=== PATIENT | female | born 1970 | race African-American/Black ===

== ENCOUNTER 2018-07-04 11:11 | Emergency (ER) | payer MEDICAID ==
[~2018-07-04] VITALS: Ht 167.6 cm; Wt 70.0 kg
[~2018-07-04 11:11] MED LIST: ALBU18HF2 IH; AMLO10TA80 PO; BUDE6HFA IH; IBUP-2028 PO; INDO25CA18 PO; MONT10TA24 PO
[2018-07-04] MEDS ORDERED: IPRATROPIUM BROMIDE (0.02%) 0.5MG/2.5ML NEB HHN STA ×2 (12:49→13:07)
[2018-07-04] MEDS ORDERED: METHYLPREDNISOLONE SOD SUCC 125 MG/2 ML VIAL IV STA ×2 (12:49→13:07)
[2018-07-04] MEDS ORDERED: ALBUTEROL (0.083%) 2.5MG/3ML NEB HHN STA ×2 (12:49→13:07)
[2018-07-04] MEDS ORDERED: ALBUTEROL (0.5%) 2.5MG/0.5ML NEB HHN ONE (13:23)
[2018-07-04] MEDS ORDERED: IPRATROPIUM BROMIDE (0.02%) 0.5MG/2.5ML NEB ONE (13:23)
[2018-07-04 14:24] VITALS: BP 121/64
== END 2018-07-04 14:26 | disposition home or self-care (01) ==
LOC: ER 11:11
DX: J45.901 Unspecified asthma with (acute) exacerbation (principal); I10 Essential (primary) hypertension
CPT/HCPCS: 81025; 94640; 96374; 99284; J2930; J7611; Z7610

== ENCOUNTER 2019-10-28 09:55 | Emergency (ER) | payer MEDICAID ==
[~2019-10-28] VITALS: Ht 160 cm; Wt 69.0 kg
[~2019-10-28 09:55] MED LIST changes: +INDO-13 PO; -INDO25CA18 PO
[2019-10-28] MEDS ORDERED: KETOROLAC 60MG/2ML VIAL IM ONE (10:30)
[2019-10-28 11:33] VITALS: BP 162/98
== END 2019-10-28 11:35 | disposition home or self-care (01) ==
LOC: ER 09:55
DX: M10.9 Gout, unspecified (principal); M25.571 Pain in right ankle and joints of right foot; M25.562 Pain in left knee; M25.561 Pain in right knee; I10 Essential (primary) hypertension; J45.909 Unspecified asthma, uncomplicated; Z79.899 Other long term (current) drug therapy
CPT/HCPCS: 73610; 96372; 99283; J1885

== ENCOUNTER 2022-04-03 12:03 | Inpatient (IN) | payer MEDICAID ==
[~2022-04-03] VITALS: Ht 160 cm; Wt 80.7 kg
[~2022-04-03 12:03] MED LIST changes: +MONT-39 PO; -MONT10TA24 PO
[2022-04-03] MEDS ORDERED: MORPHINE SULFATE 4 MG/ML CPJ (NOT FOR IM USE) IV STA (12:47)
[2022-04-03] MEDS ORDERED: ONDANSETRON HCL 4MG/2ML INJ IV STA (12:47)
[2022-04-03 13:00] LABS: CHLORIDE 103 mEq/L (98-107)
[2022-04-03] MEDS ORDERED: ASPIRIN 81MG TABLET PO ONE (13:00)
[2022-04-03] MEDS ORDERED: NITROGLYCERIN OINT 1GM/INCH UDPKT TD ONE (13:00)
[2022-04-03] MEDS ORDERED: ALBUTEROL (0.083%) 2.5MG/3ML NEB HHN STA (13:31)
[2022-04-03] MEDS ORDERED: IPRATROPIUM BROMIDE (0.02%) 0.5MG/2.5ML NEB HHN STA (13:31)
[2022-04-03 13:57] LABS: BASOPHILS % 0.3 % (0.0-2.0); EOSINOPHILS % 0.1 % (0.0-5.0); HEMATOCRIT. 37.1 % (36.0-48.0); HEMOGLOBIN. 12.2 g/dL (12.0-16.0); MEAN CORPUSCULAR VOLUME 88.3 fL (81.0-99.0); MEAN PLATELET VOLUME 9.5 fl (7.4-10.4); MONOCYTES % 9.8 % (2.0-8.0); NEUTROPHILS % 67.8 % (40.0-76.0); PLATELET 235 x1000/uL (130-400); RED BLOOD CELL COUNT 4.21 mill/uL (4.2-5.4); RED CELL DISTRIBUTION WIDTH 14.3 % (11.6-14.6)
[2022-04-03] MEDS ORDERED: IPRATROPIUM/ALBUTEROL 0.5-3(2.5)MG/3ML NEB HHN PRN (19:15)
[2022-04-03 20:00] VITALS: BP 120/64
[2022-04-03] MEDS ORDERED: ASPIRIN 81MG TABLET PO SCH (20:00)
[2022-04-03] MEDS: ENOXAPARIN 40MG/0.4ML SYR SUBCUT SCH (22:34)
[2022-04-03] MEDS: METOPROLOL TARTRATE 50MG TABLET PO SCH (22:35)
[2022-04-03] MEDS: HYDROCODONE/ACETAMINOPHEN 5/325MG TABLET PO PRN (22:38)
[2022-04-04] VITALS (7 sets, daily range): BP systolic 110–151; BP diastolic 60–90
[2022-04-04] MEDS: HYDROCODONE/ACETAMINOPHEN 5/325MG TABLET PO PRN (07:28)
[2022-04-04] MEDS: ASPIRIN 81MG TABLET PO SCH (09:00)
[2022-04-04] MEDS: METOPROLOL TARTRATE 50MG TABLET PO SCH (09:01)
[2022-04-04] MEDS ORDERED: NALOXONE HCL 0.4MG/ML VIAL IV PRN (12:45)
[2022-04-04] MEDS: MONTELUKAST SODIUM 10MG TABLET PO SCH (18:02)
[2022-04-04] MEDS: AMLODIPINE 10MG TABLET PO SCH (18:02)
[2022-04-04] MEDS: LIDOCAINE 5% PATCH TOP SCH (18:03)
[2022-04-04] MEDS: ENOXAPARIN 40MG/0.4ML SYR SUBCUT SCH (21:17)
[2022-04-04 23:27] LABS: *AMPHETAMINES SCREEN URINE NEGATIVE (NEGATIVE); *BARBITURATES SCREEN URINE NEGATIVE (NEGATIVE); *BENZODIAZEPINES SCREEN URINE NEGATIVE (NEGATIVE); *COCAINE SCREEN URINE NEGATIVE (NEGATIVE); CANNABINOID URINE SCREEN NEGATIVE (NEGATIVE); METHADONE URINE SCREEN NEGATIVE (NEGATIVE); OPIATES URINE SCREEN PRESUMTIVE POSITIVE (NEGATIVE); PHENCYCLIDINE URINE SCREEN NEGATIVE (NEGATIVE)
[2022-04-05] VITALS: BP 96/50
[2022-04-05 04:00] VITALS: BP 97/53
[2022-04-05 08:00] VITALS: BP 105/59
[2022-04-05] MEDS: ASPIRIN 81MG TABLET PO SCH (08:56)
[2022-04-05] MEDS: AMLODIPINE 10MG TABLET PO SCH (09:00)
[2022-04-05 12:00] VITALS: BP 121/70
[2022-04-05 16:00] VITALS: BP 127/75
[2022-04-05] MEDS: MONTELUKAST SODIUM 10MG TABLET PO SCH (17:46)
[2022-04-05] MEDS: LIDOCAINE 5% PATCH TOP SCH (17:46)
[2022-04-05 19:46] VITALS: BP 119/76
[2022-04-05] MEDS: HYDROCODONE/ACETAMINOPHEN 5/325MG TABLET PO PRN (20:03)
[2022-04-05 20:35] LABS: INR 0.9; PROTHROMBIN TIME 10.2 sec (9.6-11.0)
[2022-04-06] VITALS (38 sets, daily range): BP systolic 93–198; BP diastolic 19–198
[2022-04-06] MEDS: AMLODIPINE 10MG TABLET PO SCH (09:00)
[2022-04-06] MEDS ORDERED: LIDOCAINE HCL/EPINEPHRINE 1%-EPI 1:100,000 20 ML VIAL ONE (10:13)
[2022-04-06] MEDS ORDERED: GENTAMICIN SULF 40MG/ML 2ML VIAL ONE (10:13)
[2022-04-06] MEDS ORDERED: THROMBIN (BOVINE) 5000 UNITS/VIAL TOP ONE (10:13)
[2022-04-06] MEDS ORDERED: ALBUTEROL 6.7GM HFA INHALER ONE (13:01)
[2022-04-06] MEDS ORDERED: ROCURONIUM BROMIDE 10MG/ML VIAL 5ML IV ONE ×2 (13:09→14:05)
[2022-04-06] MEDS ORDERED: HYDROMORPHONE HCL/PF 2MG/ML CPJ ONE (13:09)
[2022-04-06] MEDS ORDERED: GLYCOPYRROLATE 0.2 MG/ML 2ML VIAL ONE ×3 (14:40→14:42)
[2022-04-06] MEDS ORDERED: NEOSTIGMINE METHYLSULFATE 1MG/ML 10 ML VIAL ONE (14:40)
[2022-04-06] MEDS ORDERED: CEFAZOLIN SODIUM 1000MG/VIAL ONE (14:43)
[2022-04-06] MEDS ORDERED: DEXAMETHASONE 4MG/ML 1ML VIAL ONE (14:43)
[2022-04-06] MEDS ORDERED: NALOXONE HCL 0.4 MG/ML 1ML VIAL ONE (14:56)
[2022-04-06] MEDS ORDERED: NALOXONE HCL 0.4MG/ML VIAL IV PRN (15:00)
[2022-04-06] MEDS: LIDOCAINE 5% PATCH TOP SCH ×2 (15:00→17:44)
[2022-04-06] MEDS ORDERED: HYDRALAZINE 20MG/ML VIAL ONE (15:04)
[2022-04-06] MEDS: DEXT 5%/LACTATED RINGERS 1,000 ML IV SCH ×2 (15:51→23:38)
[2022-04-06] MEDS: MORPHINE SULFATE 4 MG/ML CPJ (NOT FOR IM USE) IV PRN ×3 (15:55→23:38)
[2022-04-06] MEDS: MONTELUKAST SODIUM 10MG TABLET PO SCH (17:00)
[2022-04-06] MEDS: NITROGLYCERIN 0.4MG TABLET SL SL PRN ×3 (17:16→18:04)
[2022-04-06] MEDS: DEXAMETHASONE 4MG/ML 1ML VIAL IV SCH ×2 (17:16→23:19)
[2022-04-06] MEDS: NICARDIPINE 100 MG in SODIUM CHLORIDE 0.9% 60 ML IV PRN (18:23)
[2022-04-06] MEDS ORDERED: IOHEXOL-350 100 ML BOTTLE ONE (20:01)
[2022-04-06] MEDS: DEXTROSE 5% IV SCH (21:25)
[2022-04-06] MEDS: WATER IV SCH (21:25)
[2022-04-06] MEDS: CEFAZOLIN IV SCH (21:25)
[2022-04-06] MEDS ORDERED: CEFAZOLIN SODIUM 1000MG/VIAL IV SCH (22:00)
[2022-04-07] VITALS (80 sets, daily range): BP systolic 68–153; BP diastolic 51–82
[2022-04-07] MEDS: CEFAZOLIN IV SCH ×2 (05:36→13:27)
[2022-04-07] MEDS: DEXAMETHASONE 4MG/ML 1ML VIAL IV SCH ×3 (05:36→18:33)
[2022-04-07] MEDS: DEXTROSE 5% IV SCH ×2 (05:36→13:27)
[2022-04-07] MEDS: WATER IV SCH ×2 (05:36→13:27)
[2022-04-07 05:49] LABS: HEMATOCRIT. 36.7 % (36.0-48.0); HEMOGLOBIN. 11.9 g/dL (12.0-16.0); MEAN CORPUSCULAR HEMOGLOBIN 28.8 pg (28.0-32.0); MEAN CORPUSCULAR VOLUME 88.7 fL (81.0-99.0); MEAN PLATELET VOLUME 8.8 fl (7.4-10.4); PLATELET 255 x1000/uL (130-400); RED BLOOD CELL COUNT 4.14 mill/uL (4.2-5.4); RED CELL DISTRIBUTION WIDTH 13.9 % (11.6-14.6)
[2022-04-07 05:59] LABS: CHLORIDE 105 mEq/L (98-107)
[2022-04-07] MEDS: AMLODIPINE 10MG TABLET PO SCH (08:05)
[2022-04-07 08:59] LABS: PLATELET ESTIMATE NORMAL
[2022-04-07] MEDS: HYDROCODONE/ACETAMINOPHEN 5/325MG TABLET PO PRN ×2 (10:51→21:08)
[2022-04-07] MEDS: NICARDIPINE 100 MG in SODIUM CHLORIDE 0.9% 60 ML IV PRN (12:25)
[2022-04-07] MEDS: LIDOCAINE 5% PATCH TOP SCH (16:27)
[2022-04-07] MEDS: DEXT 5%/LACTATED RINGERS 1,000 ML IV SCH ×2 (16:27→20:36)
[2022-04-07] MEDS: MONTELUKAST SODIUM 10MG TABLET PO SCH (16:28)
[2022-04-07] MEDS: DOCUSATE SODIUM 250MG CAPSULE PO SCH (16:28)
[2022-04-07 22:40] LABS: CLARITY URINE CLEAR (CLEAR); COLOR URINE YELLOW (YELLOW); KETONES URINE NEGATIVE (NEGATIVE); LEUKOCYTE ESTERASE URINE TRACE (NEGATIVE); NITRITE URINE NEGATIVE (NEGATIVE); OCCULT BLOOD URINE 1+ (NEGATIVE); PH URINE 6.5 (4.5-8.0); PROTEIN URINE NEGATIVE (NEGATIVE); SPECIFIC GRAVITY URINE 1.014 (1.005-1.030); UROBILINOGEN URINE 0.2 E.U./dL (0.2-1.0)
[2022-04-08] VITALS: BP 116/62
[2022-04-08 04:00] VITALS: BP 119/56
[2022-04-08] MEDS: DEXT 5%/LACTATED RINGERS 1,000 ML IV SCH ×2 (05:52→16:27)
[2022-04-08 08:00] VITALS: BP 141/80
[2022-04-08 08:47] LABS: RED BLOOD CELL COUNT 4.12 mill/uL (4.2-5.4); RED CELL DISTRIBUTION WIDTH 14.5 % (11.6-14.6)
[2022-04-08 08:50] LABS: HEMATOCRIT. 36.5 % (36.0-48.0); HEMOGLOBIN. 11.8 g/dL (12.0-16.0); MEAN CORPUSCULAR HEMOGLOBIN 28.7 pg (28.0-32.0); MEAN CORPUSCULAR VOLUME 88.7 fL (81.0-99.0); MEAN PLATELET VOLUME 8.8 fl (7.4-10.4); PLATELET 229 x1000/uL (130-400)
[2022-04-08] MEDS: DOCUSATE SODIUM 250MG CAPSULE PO SCH ×2 (09:43→16:27)
[2022-04-08] MEDS: AMLODIPINE 10MG TABLET PO SCH (09:44)
[2022-04-08] MEDS: HYDROCODONE/ACETAMINOPHEN 5/325MG TABLET PO PRN (09:52)
[2022-04-08 10:27] LABS: CHLORIDE 105 mEq/L (98-107)
[2022-04-08 12:00] VITALS: BP 122/74
[2022-04-08 12:31] LABS: PLATELET ESTIMATE NORMAL
[2022-04-08 16:00] VITALS: BP 128/80
[2022-04-08] MEDS: LIDOCAINE 5% PATCH TOP SCH (16:26)
[2022-04-08] MEDS: MONTELUKAST SODIUM 10MG TABLET PO SCH (16:27)
[2022-04-08 20:00] VITALS: BP 125/72
[2022-04-09] VITALS: BP 132/72
[2022-04-09] MEDS: DEXT 5%/LACTATED RINGERS 1,000 ML IV SCH ×2 (02:45→12:45)
[2022-04-09 04:00] VITALS: BP 139/74
[2022-04-09 08:00] VITALS: BP 148/86
[2022-04-09] MEDS: DOCUSATE SODIUM 250MG CAPSULE PO SCH (09:35)
[2022-04-09] MEDS: AMLODIPINE 10MG TABLET PO SCH (09:35)
[2022-04-09 12:00] VITALS: BP 146/72
[2022-04-09] MEDS ORDERED: HYDR-4001 MT (13:41)
[2022-04-09] MEDS ORDERED: LACTULOSE 20G/30ML UDC PO SCH (14:00)
[2022-04-09] MEDS: LIDOCAINE 5% PATCH TOP SCH (14:33)
[2022-04-09 15:48] VITALS: BP 146/72
[2022-04-09 16:00] VITALS: BP_SYST 121; BP_SYST 146; BP_DIAS 70; BP_DIAS 72
== END 2022-04-09 17:34 | disposition home or self-care (01) | DRG 321 ==
LOC: ER 12:03 → EDBEDREQTM 14:36 → EDBEDREQ 14:36 → ENRESERV 17:01 → 7WST 18:45 → MICUSO 04-06 15:00 → 6EST 04-07 22:15
PROVIDERS: ADMIT Internal Medicine; ATTEND Internal Medicine
PROC: 0RG10A0 Fusion of Cervical Vertebral Joint with Interbody Fusion Device, Anterior Approach, Anterior Column, Open Approach (ICD-10-PCS; principal; 2022-04-06)
PROC: 0RB30ZZ Excision of Cervical Vertebral Disc, Open Approach (ICD-10-PCS; 2022-04-06)
DX: M50.022 Cervical disc disorder at C5-C6 level with myelopathy (principal); J96.01 Acute respiratory failure with hypoxia; G82.50 Quadriplegia, unspecified; J98.2 Interstitial emphysema; J45.901 Unspecified asthma with (acute) exacerbation; M47.12 Other spondylosis with myelopathy, cervical region; M48.02 Spinal stenosis, cervical region; M50.122 Cervical disc disorder at C5-C6 level with radiculopathy; Z20.822 Contact with and (suspected) exposure to COVID-19; I16.0 Hypertensive urgency; D72.829 Elevated white blood cell count, unspecified; M50.222 Other cervical disc displacement at C5-C6 level; I10 Essential (primary) hypertension; F17.200 Nicotine dependence, unspecified, uncomplicated; Z79.899 Other long term (current) drug therapy; R07.9 Chest pain, unspecified
CPT/HCPCS: 36415; 71045; 71275; 72040; 72141; 72148; 76000; 80048; 80053; 80305; 81003; 82962; 83036; 83880; 84484; 85025; 85651; 86140; 86850; 86900; 87426; 88304; 88311; 93005; 93306; 94640; 95925; 95926; 95928; 95929; 97116; 97162; 97530; 99285; C1713; J0360; J0690; J1100; J1170; J1580; J1650; J2270; J2310; J2405; J2710; J3490; J7050; J7070; J7120; J7121; Q9967; C1762

== ENCOUNTER 2022-12-05 13:18 | Emergency (ER) | payer MEDICAID ==
[~2022-12-05] VITALS: Ht 160 cm; Wt 74.0 kg
[~2022-12-05 13:18] MED LIST changes: +HYDR-4001 MT
[2022-12-05 13:26] VITALS: BP 143/91
[2022-12-05 16:53] LABS: BASOPHILS % 0.5 % (0.0-2.0); EOSINOPHILS % 1.7 % (0.0-5.0); HEMATOCRIT. 37.9 % (36.0-48.0); HEMOGLOBIN. 12.5 g/dL (12.0-16.0); LYMPHOCYTES % 33.5 % (20.0-50.0); MEAN CORPUSCULAR HEMOGLOBIN 29.6 pg (28.0-32.0); MEAN CORPUSCULAR VOLUME 89.4 fL (81.0-99.0); MEAN PLATELET VOLUME 8.2 fl (7.4-10.4); MONOCYTES % 7.1 % (2.0-8.0); NEUTROPHILS % 57.2 % (40.0-76.0); PLATELET 269 x1000/uL (130-400); RED BLOOD CELL COUNT 4.24 mill/uL (4.2-5.4); RED CELL DISTRIBUTION WIDTH 14.6 % (11.6-14.6)
[2022-12-05 17:54] LABS: CHLORIDE 105 mEq/L (98-107)
[2022-12-05] MEDS ORDERED: ACETAMINOPHEN 325MG TABLET PO ONE (18:45)
== END 2022-12-05 18:56 | disposition home or self-care (01) ==
LOC: ER 13:18
DX: I10 Essential (primary) hypertension (principal); J45.909 Unspecified asthma, uncomplicated; Z79.899 Other long term (current) drug therapy; Z98.890 Other specified postprocedural states
CPT/HCPCS: 36415; 80053; 84484; 85025; 93005; 99284

== ENCOUNTER 2023-08-02 10:00 | Emergency (ER) | payer MEDICAID ==
[~2023-08-02] VITALS: Ht 162.6 cm; Wt 84.0 kg
[2023-08-02 10:02] VITALS: O2SAT 99
[2023-08-02 10:40] LABS: BASOPHILS % 0.4 % (0.0-2.0); EOSINOPHILS % 1.2 % (0.0-5.0); HEMATOCRIT. 38.8 % (36.0-48.0); HEMOGLOBIN. 12.7 g/dL (12.0-16.0); LYMPHOCYTES % 32.2 % (20.0-50.0); MEAN CORPUSCULAR HEMOGLOBIN 29.3 pg (28.0-32.0); MEAN CORPUSCULAR HGB CONC 32.8 g/dL (31.0-37.0); MEAN CORPUSCULAR VOLUME 89.4 fL (81.0-99.0); MEAN PLATELET VOLUME 8.4 fl (7.4-10.4); MONOCYTES % 7.3 % (2.0-8.0); NEUTROPHILS % 58.9 % (40.0-76.0); PLATELET 267 x1000/uL (130-400); RED BLOOD CELL COUNT 4.34 mill/uL (4.2-5.4); RED CELL DISTRIBUTION WIDTH 13.9 % (11.6-14.6); WHITE BLOOD COUNT 4.9 x1000/uL (4.5-11.0)
[2023-08-02 10:42] LABS: CLARITY URINE CLEAR (CLEAR); COLOR URINE YELLOW (YELLOW); GLUCOSE URINE NEGATIVE (NEGATIVE); KETONES URINE TRACE (NEGATIVE); LEUKOCYTE ESTERASE URINE NEGATIVE (NEGATIVE); NITRITE URINE NEGATIVE (NEGATIVE); OCCULT BLOOD URINE NEGATIVE (NEGATIVE); PH URINE 6.5 (4.5-8.0); PROTEIN URINE TRACE (NEGATIVE); SPECIFIC GRAVITY URINE 1.024 (1.005-1.030)
[2023-08-02 10:45] LABS: RBC URINE 0-2 /hpf (0-2); SQUAMOUS EPITHELIAL CELL URINE 1+ /lpf (RARE/1+); WBC URINE 0-2 /hpf (0-2); YEAST URINE NONE SEEN
[2023-08-02 11:16] LABS: CHLORIDE 106 mEq/L (98-107); INDEX HEMOLYSI 1 (1-3); INDEX ICTERIC 1 (1-4); INDEX LIPEMIC 1 (1-3); POTASSIUM 4.3 mEq/L (3.5-5.1); SODIUM 141 mEq/L (136-145)
[2023-08-02 11:20] LABS: MUCUS URINE 2+ /lpf (< = 2+)
[2023-08-02 11:22] LABS: BACTERIA URINE 2+; CALCIUM OXALATE CRYSTALS URINE 1+ /lpf
[2023-08-02 11:29] LABS: ALANINE AMINOTRANSFERASE 21 IU/L (13-61); ALBUMIN 4.1 g/dL (3.4-5.0); ASPARTATE AMINOTRANSFERASE 9 IU/L (15-37); BILIRUBIN TOTAL 0.4 mg/dL (0.1-1.0); CALCIUM 9.5 mg/dL (8.5-10.1); GLUCOSE 98 mg/dL (70-105); PROTEIN TOTAL 8.2 g/dL (6.0-8.3); TROPONIN I HIGH SENSITIVITY 5 ng/L (<54); UREA NITROGEN BLOOD 11 mg/dL (7-21)
[2023-08-02] MEDS ORDERED: ACETAMINOPHEN 325MG TABLET PO ONE (14:15)
[2023-08-02 14:38] LABS: CARBON DIOXIDE 28 mEq/L (21-32)
[2023-08-02 14:45] LABS: TROPONIN I HIGH SENSITIVITY 5 ng/L (<54)
[2023-08-02] MEDS ORDERED: TOPUD MT (14:53)
[2023-08-02 15:12] VITALS: BP 151/84; PULSE 74; RESP 18; TEMP 98.1
== END 2023-08-02 15:13 | disposition home or self-care (01) ==
LOC: ER 10:00
DX: R07.89 Other chest pain (principal); I10 Essential (primary) hypertension; J45.909 Unspecified asthma, uncomplicated; Z98.890 Other specified postprocedural states
CPT/HCPCS: 36415; 71045; 80053; 81003; 84484; 85025; 93005; 99285

== ENCOUNTER 2023-10-30 09:52 | Emergency (ER) | payer MEDICAID ==
[~2023-10-30] VITALS: Ht 165.1 cm; Wt 75.0 kg
[~2023-10-30 09:52] MED LIST changes: +TOPUD MT
[2023-10-30 09:58] VITALS: O2SAT 100
[2023-10-30] MEDS ORDERED: ACETAMINOPHEN 650MG/20.3ML UDC PO ONE (10:15)
[2023-10-30 10:28] LABS: BASOPHILS % 0.7 % (0.0-2.0); EOSINOPHILS % 3.1 % (0.0-5.0); HEMATOCRIT. 44.9 % (36.0-48.0); HEMOGLOBIN. 14.4 g/dL (12.0-16.0); LYMPHOCYTES % 33.3 % (20.0-50.0); MEAN CORPUSCULAR HEMOGLOBIN 29.4 pg (28.0-32.0); MEAN CORPUSCULAR HGB CONC 32.1 g/dL (31.0-37.0); MEAN CORPUSCULAR VOLUME 91.5 fL (81.0-99.0); MEAN PLATELET VOLUME 10.3 fl (7.4-10.4); MONOCYTES % 5.5 % (2.0-8.0); NEUTROPHILS % 57.4 % (40.0-76.0); PLATELET 135 x1000/uL (130-400); RED BLOOD CELL COUNT 4.91 mill/uL (4.2-5.4); RED CELL DISTRIBUTION WIDTH 14.8 % (11.6-14.6)
[2023-10-30 10:43] LABS: CLARITY URINE CLEAR (CLEAR); COLOR URINE YELLOW (YELLOW); GLUCOSE URINE NEGATIVE (NEGATIVE); KETONES URINE NEGATIVE (NEGATIVE); PH URINE 5.5 (4.5-8.0); PROTEIN URINE NEGATIVE (NEGATIVE); SPECIFIC GRAVITY URINE 1.025 (1.005-1.030)
[2023-10-30 10:44] LABS: LEUKOCYTE ESTERASE URINE NEGATIVE (NEGATIVE); NITRITE URINE NEGATIVE (NEGATIVE); OCCULT BLOOD URINE 1+ (NEGATIVE); UROBILINOGEN URINE 0.2 E.U./dL (0.2-1.0)
[2023-10-30 10:54] LABS: SQUAMOUS EPITHELIAL CELL URINE 2+ /lpf (RARE/1+)
[2023-10-30 10:55] LABS: MUCUS URINE 3+ /lpf (< = 2+)
[2023-10-30 10:56] LABS: WBC URINE 0-2 /hpf (0-2)
[2023-10-30 10:57] LABS: BACTERIA URINE 1+
[2023-10-30 11:01] LABS: ALANINE AMINOTRANSFERASE 20 IU/L (10-49); ALBUMIN 5.2 g/dL (3.2-4.8); ASPARTATE AMINOTRANSFERASE 39 IU/L (<34); BILIRUBIN TOTAL 0.4 mg/dL (0.1-1.0); CALCIUM 10.3 mg/dL (8.7-10.4); CARBON DIOXIDE 27 mEq/L (21-32); CHLORIDE 102 mEq/L (98-107); GLUCOSE 110 mg/dL (70-105); PROTEIN TOTAL 8.4 g/dL (6.0-8.3); SODIUM 136 mEq/L (136-145); UREA NITROGEN BLOOD 10 mg/dL (9-23)
[2023-10-30 11:10] LABS: TROPONIN I HIGH SENSITIVITY < 4 ng/L (3.0-34)
[2023-10-30] MEDS: MORPHINE SULFATE 2 MG/ML CPJ (NOT FOR IM USE) IV ONE ×2 (12:27→12:29)
[2023-10-30 14:00] VITALS: BP 123/72; PULSE 72; RESP 16; TEMP 98.3
== END 2023-10-30 14:04 | disposition home or self-care (01) ==
LOC: ER 10:23
DX: R10.9 Unspecified abdominal pain (principal); J45.909 Unspecified asthma, uncomplicated; I10 Essential (primary) hypertension
CPT/HCPCS: 99291; 74176; 96374; 80053; 81003; 83690; 85025; 84484; 36415; 93005; J2270

== ENCOUNTER 2025-06-13 10:52 | Emergency (ER) | payer MEDICAID ==
[~2025-06-13] VITALS: Ht 160 cm; Wt 77.0 kg
[2025-06-13 10:57] VITALS: O2SAT 99
[2025-06-13] MEDS: IPRATROPIUM BROMIDE (0.02%) 0.5MG/2.5ML NEB HHN ONE (12:05)
[2025-06-13] MEDS: ALBUTEROL (0.083%) 2.5MG/3ML NEB HHN ONE (12:05)
[2025-06-13] MEDS: KETOROLAC 30MG/ML VIAL IM ONE (12:17)
[2025-06-13] MEDS ORDERED: P20 MT (12:53)
[2025-06-13 12:58] VITALS: BP 143/80; PULSE 89; RESP 16; TEMP 37; O2SAT 99
[2025-06-13] MEDS: PREDNISONE 20MG TABLET PO ONE (12:58)
== END 2025-06-13 13:05 | disposition home or self-care (01) ==
LOC: ER 10:52
DX: S93.402A Sprain of unspecified ligament of left ankle, initial encounter (principal); J45.901 Unspecified asthma with (acute) exacerbation; I10 Essential (primary) hypertension; Z79.52 Long term (current) use of systemic steroids; Z79.51 Long term (current) use of inhaled steroids; Z79.899 Other long term (current) drug therapy; Z98.890 Other specified postprocedural states; X58.XXXA Exposure to other specified factors, initial encounter; Y93.89 Activity, other specified; Y92.89 Other specified places as the place of occurrence of the external cause; Y99.8 Other external cause status
CPT/HCPCS: 73610; 73630; 96372; 99284; J7512; J1885; Z7610

== ENCOUNTER 2025-07-07 10:05 | Emergency (ER) | payer MEDICAID ==
[~2025-07-07] VITALS: Ht 160 cm; Wt 73.0 kg
[~2025-07-07 10:05] MED LIST changes: +P20 MT
[2025-07-07 10:07] VITALS: O2SAT 99
[2025-07-07 10:12] VITALS: BP 116/77; TEMP 36.8
[2025-07-07 11:00] LABS: BASOPHILS % 0.6 % (0.0-2.0); EOSINOPHILS % 2.6 % (0.0-5.0); HEMATOCRIT. 39.8 % (36.0-48.0); HEMOGLOBIN. 12.9 g/dL (12.0-16.0); LYMPHOCYTES % 32.8 % (20.0-50.0); MEAN PLATELET VOLUME 8.7 fl (7.4-10.4); MONOCYTES % 7.0 % (2.0-8.0); NEUTROPHILS % 57.0 % (40.0-76.0); PLATELET 265 x1000/uL (130-400); RED BLOOD CELL COUNT 4.48 mill/uL (4.2-5.4); RED CELL DISTRIBUTION WIDTH 13.7 % (11.6-14.6)
[2025-07-07] MEDS: IPRATROPIUM/ALBUTEROL 0.5-3(2.5)MG/3ML NEB HHN ONE (11:03)
[2025-07-07 11:13] LABS: CREATININE 1.1 mg/dL (0.6-1.0); UREA NITROGEN BLOOD 10 mg/dL (9-23)
[2025-07-07 11:14] LABS: TROPONIN I HIGH SENSITIVITY 4 ng/L (3.0-34)
[2025-07-07 11:15] VITALS: PULSE 80; RESP 14; O2SAT 98
[2025-07-07] MEDS ORDERED: METF-416 MT (11:59)
== END 2025-07-07 12:15 | disposition home or self-care (01) ==
LOC: ER 10:05
DX: G89.29 Other chronic pain (principal); R07.89 Other chest pain; E11.65 Type 2 diabetes mellitus with hyperglycemia; I10 Essential (primary) hypertension; J45.909 Unspecified asthma, uncomplicated; Z55.6 Problems related to health literacy; Z79.51 Long term (current) use of inhaled steroids; Z79.84 Long term (current) use of oral hypoglycemic drugs; Z87.19 Personal history of other diseases of the digestive system; Z91.013 Allergy to seafood; Z91.148 Patient's other noncompliance with medication regimen for other reason; Z20.822 Contact with and (suspected) exposure to COVID-19
CPT/HCPCS: 80048; 85025; 84484; 36415; 71045; 94640; 93005; 99285; Z7610 ×3; 94070; 94664